=== PATIENT | female | born 1955 | race Caucasian/White ===

== ENCOUNTER 2019-01-20 14:22 | Outpatient (CLI) | payer BC ==
--- NOTE | 2019-01-20 15:03 | RAD ---
Exam:Left hip 2 views HISTORY: Pain COMPARISON: None FINDINGS: Mild loss of joint space height. Subchondral cyst formation along the superior aspect of th e acetabulum. Contour of the femoral head is maintained. No fracture. IMPRESSION: Mild degenerative change left hip. No fracture.
== END 2019-01-20 14:23 | disposition home or self-care (01) ==
LOC: RAD 14:22
PROVIDERS: ATTEND Nurse Practitioner Family
DX: M25.552 Pain in left hip (principal); M16.12 Unilateral primary osteoarthritis, left hip

== ENCOUNTER 2019-01-30 14:06 | Outpatient (CLI) | payer BC ==
--- NOTE | 2019-01-30 16:46 | MRI ---
EXAM: MRI left hip PROVIDED CLINICAL HISTORY: History COMPARISON: None FINDINGS: Evaluation is limited due to patient body habitus and resultant image noise. The left hip flexor, abductor, adductor and hamstring tendons demonstrate an intact MR appearance. There is extensive femoral-acetabular articular cartilage loss with large left hip joint effusion and 1.3 cm intra-articular body within the posterior-inferior aspects of the left hip joint. The acetabular labrum is not well evaluated on the basis of this study the degenerative tearing is likely . Subchondral cyst formation is seen within the acetabulum. Regional marrow signal appears otherwise normal. The courses of the regional major neurovascular stru ctures appear unremarkable. 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
== END 2019-01-30 14:07 | disposition home or self-care (01) ==
LOC: BICMRI 14:06
PROVIDERS: ATTEND Nurse Practitioner Family
DX: M25.552 Pain in left hip (principal); M25.452 Effusion, left hip; M16.12 Unilateral primary osteoarthritis, left hip

== ENCOUNTER → 2021-01-23 | Day surgery (SDC) | payer MEDICARE ==
[~2021-01-23] MED LIST: Dexamethasone 20 MG/5 ML VIAL ONE; Fentanyl 100 MCG/2 ML VIAL ONE; Lidocaine 1% PF 5 ML VIAL ONE; Ondansetron PF 4 MG/2 ML Vial ONE; PROPOFOL 200 MG/20 ML VIAL ONE; Succinylcholine 200 MG/10 ml SYRINGE FS ONE
[2021-01-23 20:48] LABS: #Basophils 0.1 thou/uL (0.0-0.2); #Eosinphils 0.2 thou/uL (0.0-0.7); #Lymphocytes 2.8 thou/uL (1.20-3.40); #Monocytes 0.8 thou/uL (0.11-0.59); #Neutrophils 6.3 thou/uL (1.40-6.50); %Basophils 0.7 % (0.0-1.0); %Eosinophils 1.9 % (0.0-10.0); %Lymphocytes 27.6 % (21.0-51.0); %Monocytes 7.5 % (0.0-10.0); %Neutrophils 62.3 % (42.0-75.0); Hemoglobin 14.6 g/dL (12.0-16.0); Mean Corpuscular HGB CONC 35.5 g/dL (32.0-36.0); Mean Corpuscular Hemoglobin 34.2 pg (27.0-31.0); Mean Corpuscular Volume 96.3 fL (78.0-98.0); Mean Platelet Volume 7.6 fL (7.4-10.4); Platelet Count 275 thou/uL (130-400); RBC Distribution Width 11.6 % (11.5-14.5); Red Blood Cell (RBC) Count 4.29 mill/uL (4.20-5.40); White Blood Cell (WBC) Count 10.1 thou/uL (4.8-10.8)
[2021-01-23 21:06] LABS: Prothrombin Time 13.5 sec (12.0-14.7)
[2021-01-23 21:07] LABS: PTT 28.1 sec (22.9-36.1)
[2021-01-23 21:14] LABS: ALT (SGPT) 15 U/L (8-55); AST (SGOT) 25 U/L (5-34); Albumin 4.2 g/dL (3.4-4.8); Alkaline Phosphatase 61 U/L (40-110); Anion Gap 14 mmol/L (10-20); BUN (Urea Nitrogen) 11 mg/dL (9.8-20.1); Bilirubin, Total 0.4 mg/dL (0.2-1.2); Calc. Creatinine Clearance 0 mL/min (70-130); Calcium 9.7 mg/dL (7.8-10.44); Carbon Dioxide 23 mmol/L (23-31); Chloride 105 mmol/L (98-107); Globulin 3.5 g/dL (2.4-3.5); Glucose 96 mg/dL (80-115); Protein, Total 7.7 g/dL (5.8-8.1); Sodium 138 mmol/L (136-145)
== END ==
LOC: EDBD 19:31 → ERS 19:31 → SDC/OP 21:06
PROVIDERS: ATTEND Internal Medicine
PROC: 0DC38ZZ Extirpation of Matter from Lower Esophagus, Via Natural or Artificial Opening Endoscopic (ICD-10-PCS; principal; 2021-01-23)
DX: T18.128A Food in esophagus causing other injury, initial encounter (principal); K22.2 Esophageal obstruction; K22.10 Ulcer of esophagus without bleeding; K21.00 Gastro-esophageal reflux disease with esophagitis, without bleeding; K44.9 Diaphragmatic hernia without obstruction or gangrene; M41.9 Scoliosis, unspecified; I10 Essential (primary) hypertension; E06.3 Autoimmune thyroiditis; K21.9 Gastro-esophageal reflux disease without esophagitis; Z79.899 Other long term (current) drug therapy; Z98.1 Arthrodesis status
CPT/HCPCS: 80053; 85025; 85610; 85730; 99284; J1100; J2405; J2704; J3010

== ENCOUNTER 2024-12-18 10:54 | Outpatient (CLI) | payer MEDICARE | END 2024-12-18 10:55 | disposition home or self-care (01) | LOC: BICMAMMO 10:54 | PROVIDERS: ATTEND Family Medicine | DX: Z78.0 Asymptomatic menopausal state (principal); M85.851 Other specified disorders of bone density and structure, right thigh | CPT/HCPCS: 77080 ==